=== PATIENT | male | born 1955 | race Caucasian/White ===

== ENCOUNTER 2018-05-14 11:37 | Emergency (ER) | payer OTHER ==
[~2018-05-14] VITALS: Ht 182.9 cm; Wt 72.6 kg
[~2018-05-14 11:37] MED LIST: [UNRECOGNIZED DRUG - REMARK]
[2018-05-14 13:32] VITALS: BP 179/111
== END 2018-05-14 13:34 | disposition home or self-care (01) ==
LOC: ER 11:37
DX: R56.9 Unspecified convulsions (principal); H10.89 Other conjunctivitis; F17.210 Nicotine dependence, cigarettes, uncomplicated; Z88.0 Allergy status to penicillin

== ENCOUNTER 2019-11-05 10:53 | Emergency (ER) | payer OTHER ==
[~2019-11-05] VITALS: Ht 177.8 cm; Wt 74.8 kg
[2019-11-05 11:22] LABS: ABSOLUTE NEUTROPHILS 4.3 thou/uL (1.4-8.2); BASOPHILS 0.5 % (0.0-2.0); EOSINOPHILS 1.2 % (0.0-3.0); HEMATOCRIT 47.1 % (42.0-52.0); HEMOGLOBIN 15.8 gm/dL (14.0-18.0); MCH 33.1 pg (26.0-34.0); MCHC 33.5 g/dL (28.0-37.0); MCV 98.8 fL (80.0-100.0); PLATELET COUNT 164 thou/uL (150-400); POLYS 78.3 % (36.0-66.0); RBC 4.77 mil/uL (4.50-6.00); RDW 13.5 % (10.5-14.5); WBC 5.5 thou/uL (4.0-11.0)
[2019-11-05 11:31] LABS: CREATININE 0.8 mg/dL (0.7-1.3)
[2019-11-05 11:33] LABS: POTASSIUM 4.2 mmol/L (3.5-5.1)
[2019-11-05 11:37] LABS: ALBUMIN 3.9 g/dL (3.4-5.0); TOTAL BILIRUBIN 0.9 mg/dL (<0.1-1.0); TOTAL PROTEIN 8.6 g/dL (6.4-8.2)
[2019-11-05 12:26] VITALS: BP 148/77
[2019-11-05 13:49] LABS: URINE BILIRUBIN NEGATIVE (Negative); URINE BLOOD NEGATIVE (Negative); URINE CLARITY CLEAR; URINE COLOR YELLOW; URINE GLUCOSE-RANDOM* 3+ (Negative); URINE KETONES NEGATIVE (Negative); URINE LEUKOCYTES-REFLEX NEGATIVE (Negative); URINE NITRITE-REFLEX NEGATIVE (Negative); URINE PROTEIN (DIPSTICK) TRACE (Negative); URINE SPECIFIC GRAVITY 1.015 (1.005-1.035); URINE UROBILINOGEN 0.2 E.U./dl (0.2-1.0)
[2019-11-05 13:58] LABS: AMP/METHAMP Negative (Negative); BARBITURATES Negative (Negative); BENZODIAZEPINES Negative (Negative); COCAINE Negative (Negative); METHADONE Negative (Negative); OPIATES Negative (Negative); PCP Negative (Negative)
== END 2019-11-05 13:54 | disposition home or self-care (01) ==
LOC: ER 10:53
PROVIDERS: Physician Assistant
DX: R56.9 Unspecified convulsions (principal); F17.210 Nicotine dependence, cigarettes, uncomplicated; Z88.0 Allergy status to penicillin